=== PATIENT | female | born 1955 | race Caucasian/White ===

== ENCOUNTER 2023-11-24 15:11 | Outpatient (RCR) | payer MEDICARE, OTHER, SELFPAY | END 2023-11-24 23:59 | disposition home or self-care (01) | LOC: RPT 15:11 | PROVIDERS: ATTENDING PHYSICIAN Student in an Organized Health Care Education/Training Program; PRIMARYCARE PHYSICIAN Nurse Practitioner Adult Health | DX: I89.0 Lymphedema, not elsewhere classified (principal); Z73.6 Limitation of activities due to disability | CPT/HCPCS: 97010; 97110; 97140; 97162; 97535 ==

== ENCOUNTER → 2023-12-07 14:56 | Outpatient (REF) | payer MEDICARE, OTHER, SELFPAY | LOC: RAD 14:56 | PROVIDERS: ATTENDING PHYSICIAN Student in an Organized Health Care Education/Training Program; FAMILY PHYSICIAN Nurse Practitioner Adult Health | DX: I87.2 Venous insufficiency (chronic) (peripheral) (principal) | CPT/HCPCS: 93971 ==

== ENCOUNTER 2023-12-14 10:58 | Outpatient (RCR) | payer MEDICARE, OTHER, SELFPAY | END 2023-12-14 12:03 | disposition home or self-care (01) | LOC: RPT 10:58 | PROVIDERS: ATTENDING PHYSICIAN Student in an Organized Health Care Education/Training Program; PRIMARYCARE PHYSICIAN Nurse Practitioner Adult Health | DX: I89.0 Lymphedema, not elsewhere classified (principal); Z73.6 Limitation of activities due to disability | CPT/HCPCS: 97010; 97110; 97140 ==

== ENCOUNTER 2024-01-20 15:00 | Outpatient (RCR) | payer MEDICARE, OTHER, SELFPAY | END 2024-01-20 23:59 | disposition home or self-care (01) | LOC: RPT 15:00 | PROVIDERS: ATTENDING PHYSICIAN Obstetrics & Gynecology Gynecology; FAMILY PHYSICIAN Nurse Practitioner Adult Health | DX: N39.46 Mixed incontinence (principal); M62.9 Disorder of muscle, unspecified; K59.01 Slow transit constipation; Z73.6 Limitation of activities due to disability | CPT/HCPCS: 97163; 97530 ==

== ENCOUNTER 2024-02-23 10:09 | Outpatient (RCR) | payer MEDICARE, OTHER, SELFPAY | END 2024-02-23 23:59 | disposition home or self-care (01) | LOC: RPT 10:09 | PROVIDERS: ATTENDING PHYSICIAN Obstetrics & Gynecology Gynecology; FAMILY PHYSICIAN Nurse Practitioner Adult Health | DX: N39.46 Mixed incontinence (principal); K59.01 Slow transit constipation; Z73.6 Limitation of activities due to disability | CPT/HCPCS: 97140; 97530 ==

== ENCOUNTER 2024-03-06 13:15 | Outpatient (RCR) | payer MEDICARE, OTHER, SELFPAY | END 2024-03-06 23:59 | disposition home or self-care (01) | LOC: RPT 13:15 | PROVIDERS: ATTENDING PHYSICIAN Obstetrics & Gynecology Gynecology; FAMILY PHYSICIAN Nurse Practitioner Adult Health | DX: M62.9 Disorder of muscle, unspecified (principal); N39.46 Mixed incontinence; K59.01 Slow transit constipation; Z73.6 Limitation of activities due to disability | CPT/HCPCS: 97112; 97140; 97530 ==

== ENCOUNTER 2024-04-25 10:23 | Outpatient (RCR) | payer MEDICARE, OTHER, SELFPAY | END 2024-04-25 23:59 | disposition home or self-care (01) | LOC: RPT 10:23 | PROVIDERS: ATTENDING PHYSICIAN Obstetrics & Gynecology Gynecology; FAMILY PHYSICIAN Nurse Practitioner Adult Health | DX: M62.89 Other specified disorders of muscle (principal); N39.46 Mixed incontinence; K59.01 Slow transit constipation | CPT/HCPCS: 97110; 97112; 97140; 97530 ==

== ENCOUNTER 2024-05-23 15:11 | Outpatient (RCR) | payer MEDICARE, OTHER, SELFPAY | END 2024-05-23 23:59 | disposition home or self-care (01) | LOC: RPT 15:11 | PROVIDERS: ATTENDING PHYSICIAN Obstetrics & Gynecology Gynecology; FAMILY PHYSICIAN Nurse Practitioner Adult Health | DX: N39.46 Mixed incontinence (principal); M62.9 Disorder of muscle, unspecified; K59.01 Slow transit constipation; Z73.6 Limitation of activities due to disability | CPT/HCPCS: 97112; 97140; 97530 ==

== ENCOUNTER 2024-05-24 11:39 | Outpatient (RCR) | payer MEDICARE, OTHER, SELFPAY | END 2024-05-27 14:54 | disposition home or self-care (01) | LOC: RPT 11:39 | PROVIDERS: ATTENDING PHYSICIAN Orthopaedic Surgery; FAMILY PHYSICIAN Nurse Practitioner Adult Health | DX: M17.12 Unilateral primary osteoarthritis, left knee (principal); M76.32 Iliotibial band syndrome, left leg; Z96.651 Presence of right artificial knee joint; Z96.642 Presence of left artificial hip joint; Z73.6 Limitation of activities due to disability | CPT/HCPCS: 97110; 97162 ==

== ENCOUNTER 2024-06-08 10:05 | Outpatient (RCR) | payer MEDICARE, OTHER, SELFPAY | END 2024-06-08 23:59 | disposition home or self-care (01) | LOC: RPT 10:05 | PROVIDERS: ATTENDING PHYSICIAN Orthopaedic Surgery; FAMILY PHYSICIAN Nurse Practitioner Adult Health | DX: M17.12 Unilateral primary osteoarthritis, left knee (principal); M76.32 Iliotibial band syndrome, left leg; Z73.6 Limitation of activities due to disability; M81.0 Age-related osteoporosis without current pathological fracture; M24.661 Ankylosis, right knee; R26.89 Other abnormalities of gait and mobility; Z96.651 Presence of right artificial knee joint; Z96.642 Presence of left artificial hip joint; Z85.3 Personal history of malignant neoplasm of breast | CPT/HCPCS: 97010; 97110; 97140 ==

== ENCOUNTER → 2024-07-18 14:00 | Outpatient (REF) | payer MEDICARE, OTHER, SELFPAY | LOC: RAD 14:00 | PROVIDERS: ATTENDING PHYSICIAN Nurse Practitioner Adult Health | DX: M81.0 Age-related osteoporosis without current pathological fracture (principal) | CPT/HCPCS: 77080 ==

== ENCOUNTER 2024-07-27 09:55 | Outpatient (RCR) | payer MEDICARE, OTHER, SELFPAY | END 2024-07-27 23:59 | disposition home or self-care (01) | LOC: RPT 09:55 | PROVIDERS: ATTENDING PHYSICIAN Orthopaedic Surgery; FAMILY PHYSICIAN Nurse Practitioner Adult Health | DX: M17.12 Unilateral primary osteoarthritis, left knee (principal); M76.32 Iliotibial band syndrome, left leg; Z96.651 Presence of right artificial knee joint; Z96.642 Presence of left artificial hip joint; Z73.6 Limitation of activities due to disability | CPT/HCPCS: 97110; 97140 ==

== ENCOUNTER 2024-07-27 10:38 | Outpatient (RCR) | payer MEDICARE, OTHER, SELFPAY | END 2024-07-27 23:59 | disposition home or self-care (01) | LOC: RPT 10:38 | PROVIDERS: ATTENDING PHYSICIAN Obstetrics & Gynecology Gynecology; FAMILY PHYSICIAN Nurse Practitioner Adult Health | DX: M62.9 Disorder of muscle, unspecified (principal); N39.46 Mixed incontinence; K59.01 Slow transit constipation; Z73.6 Limitation of activities due to disability | CPT/HCPCS: 97112; 97140 ==

== ENCOUNTER 2024-07-28 15:15 | Outpatient (RCR) | payer MEDICARE, OTHER, SELFPAY | END 2024-07-28 23:59 | disposition home or self-care (01) | LOC: RPT 15:15 | PROVIDERS: ATTENDING PHYSICIAN Orthopaedic Surgery; FAMILY PHYSICIAN Nurse Practitioner Adult Health | DX: M17.12 Unilateral primary osteoarthritis, left knee (principal); M76.32 Iliotibial band syndrome, left leg; Z73.6 Limitation of activities due to disability; Z96.651 Presence of right artificial knee joint; Z96.642 Presence of left artificial hip joint | CPT/HCPCS: 97014; 97110; 97112; 97140 ==

== ENCOUNTER 2024-08-15 14:04 | Outpatient (RCR) | payer MEDICARE, OTHER, SELFPAY | END 2024-08-15 23:59 | disposition home or self-care (01) | LOC: RPT 14:04 | PROVIDERS: ATTENDING PHYSICIAN Obstetrics & Gynecology Gynecology; FAMILY PHYSICIAN Nurse Practitioner Adult Health | DX: M62.9 Disorder of muscle, unspecified (principal); N39.46 Mixed incontinence; K59.01 Slow transit constipation; Z73.6 Limitation of activities due to disability | CPT/HCPCS: 97112; 97140; 97530 ==

== ENCOUNTER 2025-01-26 10:14 | Emergency (ER) | payer MEDICARE, OTHER, SELFPAY ==
[2025-01-26 10:23] VITALS: BP 123/81
[2025-01-26 10:50] LABS: % Basophils 0.7 % (0-2); % Eosinophils 1.6 % (0-6); % Immature Granulocytes 0.4 % (0-0.5); % Lymphocytes 13.8 % (20.5-51.1); % Monocytes 11.3 % (1.7-9.3); % Neutrophils 72.2 % (42.2-75.2); Absolute Basophils 0.1 10^3/uL (0-0.2); Absolute Eosinophils 0.1 10^3/uL (0-0.7); Absolute Lymphocytes 1.1 10^3/uL (1.2-3.4); Absolute Monocytes 0.9 10^3/uL (0.1-0.6); Mean Corp Hgb Conc. 34.1 g/dL (33.0-37.0); Mean Corpuscular Volume 90.9 fL (81.0-99.0); Mean Platelet Volume 11.3 fL (7.4-10.4); Nucleated Red Blood Cells % 0 %; Platelet Count 255 10^3/uL (130-400); Red Blood Cell Count 4.51 10^6/uL (4.20-5.40); Red Cell Dist. Width 12.5 % (11.5-14.5); White Blood Cell Count 8.3 10^3/uL (4.8-10.8)
[2025-01-26 11:11] LABS: ALT (SGPT) 23 U/L (0-35); AST (SGOT) 21 U/L (14-36); Albumin 4.2 g/dl (3.5-5.0); Alkaline Phosphatase 63 U/L (38-126); Blood Urea Nitrogen 21 mg/dl (7-17); Calcium 9.3 mg/dl (8.4-10.2); Carbon Dioxide 27 mmol/L (22-30); Chloride 106 mmol/L (98-107); Glucose 103 mg/dl (70-99); Potassium 4.3 mmol/L (3.5-5.1); Sodium 140 mmol/L (135-145); Total Bilirubin 0.8 mg/dl (0.2-1.3); Total Protein 6.4 g/dl (6.3-8.2); eGFR > 60.00
--- NOTE | 2025-01-26 11:54 | ED.GENMED ---
History of Present Illness
General
Chief Complaint: Skin Problem
Source: patient
Exam Limitations: none
Time Seen by Provider: 01/26/25 10:52
Nursing documentation reviewed up to this point in time: agreed with
History of Present Illness
History of Present Illness:
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
bilateral ribs worse when she moves no shortness of breath only when she moves no hemoptysis
Phy Exam
Physical Exam
Physical Exam:
Physical Exam
General: no apparent distress, not acutely ill
Neck: No jaundice
Heart: s1/s2 regular rate and rhythm, no murmur. equal radial pulses.
Lungs: no acute respiratory distress. clear bilaterally reproducible tenderness in the bilateral costal margin
Abdomen: Nontender
Neuro: alert and oriented. no focal neurological deficits
Skin: no rash
Psychiatric: well kept. interactive and cooperative
Extremities: No calf pain, less than a quarter size area of redness around subacute eschar right anterior jane no fluctuance no purulence
Course
Orders/Labs/Results
Orders:
Orders
01/26/25 10:33
CBC/With Diff [Complete Blood Count/With Diff] Urgent
Comprehensive Metabolic Panel Urgent
01/26/25 11:44
Wound Dressing- Treatment ONCE
Location of Wound: leg
Acetaminophen [Tylenol] 650 mg PO NOW STA
CR Chest - 2 Views Urgent
Comment:
Reason For Exam: bilateral rib pain
01/26/25 11:49
Cephalexin Monohydrate [Keflex] 500 mg PO NOW STA
Abnormal Lab Results
01/26/25
10:33
MPV 11.3 H fL
(7.4-10.4)
Absolute Lymphs (auto) 1.1 L 10^3/uL
(1.2-3.4)
Absolute Monos (auto) 0.9 H 10^3/uL
(0.1-0.6)
Lymphocytes % 13.8 L %
(20.5-51.1)
Monocytes % 11.3 H %
(1.7-9.3)
BUN 21 H mg/dl
(7-17)
Glucose 103 H mg/dl
(70-99)
01/26/25 10:33
01/26/25 10:33
Vital Signs
Initial and Last Documented VS:
Initial Vital Signs
Temp Pulse Resp BP Pulse Ox
98.3 F 71 16 123/81 98
01/26/25 10:23 01/26/25 10:23 01/26/25 10:23 01/26/25 10:23 01/26/25 10:23
Last Documented Vital Signs
Temp Pulse Resp BP Pulse Ox
98.3 F 73 20 138/78 98
01/26/25 10:23 01/26/25 11:59 01/26/25 11:59 01/26/25 11:59 01/26/25 11:59
MDM/Problems Addressed
Differential Diagnosis Includes:
Cellulitis dermatitis postprocedural inflammation,
Bilateral reproducible rib pain worse with movement
MDM/Problems Addressed:
Postprocedural wound from a
Rib pain, doubt PE by history and physical not tachypneic not tachycardic not hypoxic no calf pain pain is definitely positional
Chronic conditions affecting care:
Post total knee inflammation
Acute Exacerbation and/or Progression of Chronic Illness:
Post total knee inflammation
*Critical Care Note
Total Time (30-74mins, 75-104mins- exclusive of procedures): Not Applicable
Update Note
Update Note:
Update chest x-ray noted patient no acute distress not tachycardic not tachypneic, pain is worse with position and palpation do not believe this represents acute PE
ED Attending Note
-
Portions of this chart may have been created with voice recognition software.� Occasional wrong word or��sound alike� substitutions may have occurred due to the inherent limitations of voice recognition software.
Discharge Plan
Departure
Patient Disposition: Home (Routine Discharge)
Date of Disposition: 01/26/25
Time of Disposition: 11:49
Patient with high blood pressure during this ER visit?: No
Condition: Good
Discharge Problem:
Cellulitis
Instructions: Wound Care (DC), Cellulitis (Skin Infection), Adult (DC)
Prescriptions:
New
cephalexin 500 mg capsule
500 mg PO Q6H 7 Days Qty: 28 0RF
Referrals:
NONE,* [Family Provider] -
Interventions
Interventions:
*Risk Screen - Suicide Last Done: 01/26/25 10:23
*Neglect/Abuse Screening Last Done: 01/26/25 10:23
ED-Skin Assessment Last Done: 01/26/25 10:57
Discharge Date and Time
Print Language: IRISH
[2025-01-26 11:59] VITALS: BP 138/78
[2025-01-26] MEDS: TYLENOL 650 MG PO (12:15)
[2025-01-26] MEDS: KEFLEX 500 MG PO (12:15)
== END 2025-01-26 13:20 | disposition home or self-care (01) ==
LOC: EMR 10:14
PROVIDERS: Emergency Medicine; EMERGENCY PHYSICIAN Emergency Medicine
DX: L03.115 Cellulitis of right lower limb (principal); Z96.651 Presence of right artificial knee joint
CPT/HCPCS: 99284; 71046; 80053; 85025